=== PATIENT | female | born 1945 | race Caucasian/White ===

== ENCOUNTER 2017-03-14 11:56 | Inpatient (IN) | payer MEDICARE ==
[~2017-03-14] VITALS: Ht 167.6 cm; Wt 101.4 kg
[2017-03-14 12:58] LABS: BASOPHILS 0.1 % (0-2); EOSINOPHILS 5.2 % (0-7); HEMATOCRIT 42.5 % (36.0-48.0); IMMATURE GRANULOCYTES 0.3 % (0-5); LYMPHOCYTES 27.2 % (15-50); MCH 30.9 pg (26.0-34.0); MCHC 32.9 g/dL (31.0-37.0); MCV 93.8 fL (80.0-100.0); MEAN PLATELET VOLUME 9.8 fL (7.4-10.4); MONOCYTES 4.8 % (2-11); NEUTROPHILS 62.4 % (40-80); PLATELET COUNT 157 10x3/uL (130-400); RBC 4.53 10x6/uL (4.00-5.40); WBC 7.9 10x3/uL (4.8-10.8)
[2017-03-14 13:13] LABS: APTT 26.6 SECONDS (22.8-39.4); INR 1.06 (0.85-1.17); PROTIME 13.4 SECONDS (11.6-15.0)
[2017-03-14 13:22] LABS: ALBUMIN 3.4 g/dL (3.4-5.0); ALKALINE PHOSPHATASE 98 U/L (46-116); ALT (SGPT) 22 U/L (10-68); CALC OSMOLALITY 293 mosm/kg (275-300); CALCIUM 9.7 mg/dL (8.5-10.1); CARBON DIOXIDE 27.4 mmol/L (21.0-32.0); CHLORIDE - SERUM 101 mmol/L (98-107); CREATININE - SERUM 1.1 mg/dL (0.6-1.3); GLUCOSE 319 mg/dL (74-106); POTASSIUM - SERUM 3.8 mmol/L (3.5-5.1); PROTEIN - SERUM 7.5 g/dL (6.4-8.2); SODIUM 139 mmol/L (136-145); UREA NITROGEN 25 mg/dL (7-18); eGFR NON AFRICAN AMERICAN 51 mL/min (90-120)
[2017-03-14 13:31] LABS: CREATINE KINASE 68 UL (21-215); PRO BNP 74 pg/mL (0-125); TROPONIN-I < 0.017 ng/mL (0.000-0.060)
[2017-03-14 14:00] LABS: APPEARANCE HAZY (CLEAR); BACTERIA MODERATE /hpf (NONE SEEN); BILIRUBIN NEGATIVE (NEGATIVE); COLOR YELLOW (YELLOW); GLUCOSE 1000 mg/dL (NEGATIVE); KETONE NEGATIVE (NEGATIVE); MUCUS >1+ /lpf (NONE SEEN); NITRITE NEGATIVE (NEGATIVE); PROTEIN NEGATIVE (NEGATIVE); RED CELLS - URINE OCC /hpf (0-5); UROBILINOGEN NORMAL (NORMAL); YEAST <1+ /hpf (NONE SEEN)
--- NOTE | 2017-03-14 15:30 | NUR ---
RECEIVED REPORT FROM ER. PATIENT IS 72 Y/O FEMALE THAT WAS BROUGHT TO THE ER BY EMS. PATIENT REPORTS SHE FELL 3 TIMES YESTERDAY AND 1 TIME TODAY, AND THAT HER VISION IS DOUBLED AT TIMES. ER REPORTS PATIENT HAS SLURRED SPEECH AND RIGHT SIDE FACE DROOPING. SHE WAS DIAGNOSED WITH UTI IN ER. SHE IS BEING ADMITTED FOR GENERAL WEAKNESS. AT 1520 HER BS WAS 319 AND 2 UNITS OF REGULAR INSULIN WAS GIVEN BY ER STAFF. SHE HAS A 20G IV IN THE LEFT AC AND WAS GIVEN A FLUID BOLUS IN THE ER. SHE TESTED NEGATIVE FOR THE FLU. HER CT WAS NEGATIVE. SHE IS ALERT AND ORIENTED AND CAN WALK TO THE RESTROOM WITH 1 PERSON ASSIST. STATES HER IS ADMITTED TO THE [facility] IN [place] FOR PNEUMONIA AT THIS TIME. ROOM IS CLEAN AND READY FOR PATIENT.
--- NOTE | 2017-03-14 15:46 | NUR ---
RECEIVED PATIENT VIA STRETCHER BY ER STAFF. PATIENT IS TALKING TO PRESCHOOL TEACHER AT BEDSIDE. WILL FINISH ADMISSION.
--- NOTE | 2017-03-14 16:30 | NUR ---
PATIENT PLACEMENT COORDINATOR CAME INTO PATIENTS ROOM TO DRAW BLOOD. PATIENT WAS REFUSING, STATING "MY VEINS ARE TINY AND HORRIBLE, IT JUST HURTS TOO BAD"... EXPLAINED TO PATIENT IT IS VERY IMPORTANT TO GET LABS TO HELP THE DOCS FIGURE OUT HOW TO TREAT HER. AFTER SEVERAL MINUTES OF TALKING TO PATIENT, SHE ALLOWED LAB DRAW. CPOC.
[2017-03-14 16:35] VITALS: BP 156/83
--- NOTE | 2017-03-14 16:53 | NUR ---
RECEIVED PHONE CALL FROM PATIENT'S SON, RAHUL GOMEZ WHO IS AN RN AND LIVES IN [facility]. RAHUL ASKED IF THERE WILL BE A DERMATOLOGIST WORKING WITH HIS MOM. ADVISED THERE WILL BE, BUT NENA IS GONE FOR THE DAY. RAHUL VOICED UNDERSTANDING AND STATES THAT'S NOT A PROBLEM. RAHUL STATES HE RECEIVED SOME "DISTURBING" PICTURES FROM HIM BROTHER, WHO IS ALSO A [place], AND HE IS "VERY CONCERNED" ABOUT HER "UNSAFE LIVING CONDITIONS". ADVISED I WOULD PASS THAT INFORMATION ALONG TO THE DERMATOLOGIST AND HE WILL BE HAPPY TO CALL HIM TOMORROW. RAHUL CAN BE REACHED AT [phone].
[2017-03-14 16:54] VITALS: BP 156/83; BMI 34.7
--- NOTE | 2017-03-14 17:01 | NUR ---
ARRIVED FROM ER VIA STRETCHER. AWAKE AND ORIENTED X3. KIANA HOT PLATE PLYWOOD PRESS LABORER VERY GOOD AND STRONG. FEET PUSHING AGAINST HANDS VERY STRONG. SPEECH IS CLEAR. SEE ASSESSMENT FOR FURTHER EVAL.
--- NOTE | 2017-03-14 17:13 | NUR ---
FSBS 175, WILL GIVE 2 UNITS OF HUMALOG. CPOC
[2017-03-14 17:29] LABS: CKMB 0.7 U/L (0.0-3.6); CREATINE KINASE 58 UL (21-215)
[2017-03-14 17:34] LABS: TROPONIN-I < 0.017 ng/mL (0.000-0.060)
--- NOTE | 2017-03-14 19:22 | NUR ---
EVENING ROUNDS MADE. PATIENT LAYING IN BED. TV WON'T TURN ON, ENTERED REPAIR REQUEST. DENIES ANY OTHER NEEDS. CALL LIGHT IN REACH, SR UP X2, BED IN LOWEST POSITION. CPOC.
[2017-03-14 22:39] VITALS: BP 156/93
[2017-03-14] MEDS ORDERED: GABAPENTIN100 MG PO (22:44)
[2017-03-14] MEDS ORDERED: BAYER CHEWABLE81 MG PO (22:45)
[2017-03-14] MEDS ORDERED: K-DUR20 MEQ PO (22:45)
[2017-03-14] MEDS ORDERED: FUROSEMIDE20 MG PO (22:45)
[2017-03-14] MEDS ORDERED: PHENERGAN25 M1 PO (22:46)
[2017-03-14] MEDS ORDERED: COZAAR100 MG PO (22:47)
[2017-03-14] MEDS ORDERED: LOPRESSOR25 MG PO (22:47)
[2017-03-14] MEDS ORDERED: GLIMEPIRIDE1 MG PO (22:48)
[2017-03-14] MEDS ORDERED: ELAVIL25 MG PO (22:49)
[2017-03-14] MEDS ORDERED: CYCLOBENZAPRINE10 MG PO (22:49)
[2017-03-14] MEDS ORDERED: NOVOLOG100 U/M1 SC (22:50)
[2017-03-14 23:33] LABS: CKMB 0.7 U/L (0.0-3.6); CREATINE KINASE 65 UL (21-215)
[2017-03-14 23:34] LABS: TROPONIN-I < 0.017 ng/mL (0.000-0.060)
[2017-03-15 05:17] LABS: BASOPHILS 0.2 % (0-2); EOSINOPHILS 7.3 % (0-7); HEMATOCRIT 38.4 % (36.0-48.0); HEMOGLOBIN 12.7 g/dL (12-16); IMMATURE GRANULOCYTES 0.2 % (0-5); LYMPHOCYTES 46.7 % (15-50); MCH 30.8 pg (26.0-34.0); MCHC 33.1 g/dL (31.0-37.0); MONOCYTES 5.4 % (2-11); NEUTROPHILS 40.2 % (40-80); PLATELET COUNT 162 10x3/uL (130-400); RBC 4.13 10x6/uL (4.00-5.40); RDW 13.1 % (11.5-14.5); WBC 6.3 10x3/uL (4.8-10.8)
[2017-03-15 05:54] LABS: ALBUMIN 2.8 g/dL (3.4-5.0); ALKALINE PHOSPHATASE 81 U/L (46-116); ALT (SGPT) 18 U/L (10-68); CALC OSMOLALITY 286 mosm/kg (275-300); CARBON DIOXIDE 24.6 mmol/L (21.0-32.0); CHLORIDE - SERUM 106 mmol/L (98-107); CKMB 0.7 U/L (0.0-3.6); CREATINE KINASE 61 UL (21-215); CREATININE - SERUM 0.9 mg/dL (0.6-1.3); POTASSIUM - SERUM 3.3 mmol/L (3.5-5.1); PROTEIN - SERUM 6.4 g/dL (6.4-8.2); SODIUM 141 mmol/L (136-145); TROPONIN-I < 0.017 ng/mL (0.000-0.060); UREA NITROGEN 19 mg/dL (7-18); eGFR NON AFRICAN AMERICAN 65 mL/min (90-120)
[2017-03-15 05:59] LABS: GLUCOSE 174 mg/dL (74-106)
--- NOTE | 2017-03-15 05:59 | NUR ---
PATIENT TOOK A SHOWER AND WHEN HE CAME OUT THE RIGHT WRIST AND RIGHT AC IV'S HAD GONE BAD. NEW IV START IN LEFT WRIST, 2 ATTEMPTS. NEW IV START IN LEFT UPPER ARM ONE ATTEMPT. FLUIDS GOING ORDERED. BED LOW, CALL LIGHT IN REACH.
[2017-03-15 06:16] VITALS: BP 190/105
[2017-03-15 07:54] VITALS: BP 190/90
--- NOTE | 2017-03-15 10:28 | NUR ---
SCD'S APPLIED TO BILATERAL LE
[2017-03-15 10:57] VITALS: Ht 167.6 cm; Wt 101.4 kg
[2017-03-15 12:15] VITALS: BP 170/82
--- NOTE | 2017-03-15 14:38 | NUR ---
Rehab Prescreening Consult recieved and the chart has been reviewed. She has orders for a Speech eval and orthostatic B/P's that have not been done. Rehab will follow to see if she has a qualifying rehab diagnosis after her workup and eval's are completed. Aniya Hannah RN Clinical Liaison, rehab
[2017-03-15 15:30] VITALS: BP 153/68
--- NOTE | 2017-03-15 16:56 | NUR ---
Patient Name: TISH GUNN Admission Status: ER Accout number: [id number] Admission Date: 03-14-2017 : 1945 Admission Diagnosis: Attending: KARSON JERONIMO Current LOS: 1 Anticipated DC Date: 03-16-2017 Planned Disposition: Inpatient Rehab Primary Insurance: MEDICARE A & B PLANNED EXTERNAL PROVIDER: [facility] INPATIENT REHAB Discharge Planning Comments: * Is the patient Alert and Oriented? Yes 0 * How many steps to enter\exit or inside your home? 1 0 * PCP DR. JERONIMO 0 * Pharmacy [facility] 0 * Preadmission Environment Home with Family 0 * ADLs Independent 0 * Equipment Cane Rolling Walker Walker 0 * Other Equipment NO MEDICAL EQUIPMENT PROVIDER PREFERENCE 0 * List name and contact numbers for known caregivers / representatives who currently or will assist patient after discharge: SHARIF GUNN, SPOUSE, 0 * Community resources currently utilized None 0 * Please name any agencies selected above. NONE 0 * Additional services required to return to the preadmission environment? Yes * Can the patient safely return to the preadmission environment? Yes 0 * Has this patient been hospitalized within the prior 30 days at any hospital? No 0 CM RECEIVED MESSAGE TO CALL PT'S SON, RAHUL GOMEZ, , IN REGARDINS TO PT'S LIVING CONDITIONS THAT HE CONSIDERS UNSAFE; CM CALLED THE NUMBER AND LEFT CM DIRECT CONTACT NUMBER FOR RETURN CALL. CM RECEIVED ORDER FOR INPATIENT REHAB PRESCREENING; CM MET WITH PT IN ROOM TO DISCUSS DISCHARGE PLANNING AND NEEDS. PT REPORTS LIVING AT HOME INDEPENDENTLY WITH HER SPOUSE. PT HAS CANE, ROLLING WALKER AND STANDARD WALKER. PT HAS NOT BEEN USING ASSISTIVE DEVICES AT HOME AND REPORTS HAVING FELL THREE TIMES SINCE TUESDAY, THE LAST TIME, SHE HAD TO CALL HER FAMILY TO COME OVER AND HELP HER OUT OF THE FLOOR. PT DENIES ANY ABUSE OR NEGLECT AT HOME; PT DENIES THAT HER LIVING ENVIRONMENT IS UNSAFE; PT REPORTS SHE HAS NO GUARDIAN AND MAKES DECISIONS FOR HERSELF. PT HAS NO OUTSIDE SERVICES ASSISTING IN THE HOME. CM DISCUSSED AVAILABILITY OF HOME HEALTH, REHAB SERVICES AND MEDICAL EQUIPMENT. PT HAS HAD HOME HEALTH WITH [facility] IN THE PAST AND THEY DID A GOOD JOB, BUT IT IS NOT CURRENT. PT WOULD LIKE TO BE CONSIDERED FOR REHAB AT [place] AND WOULD RATHER NOT GO [place]OWN OR OUT OF TOWN FOR REHAB. PT REPORTS PLAN TO COMPLETE REHAB AND RETURN HOME. PT'S SPOUSE IS IN [facility] WITH PNEUMONIA. PT REPORTS HER SON WILL PICK HER UP FOR DISCHARGE HOME. CM WAITING INPATIENT REHAB PRESCREENING RESULTS AND ADMISSION DETERMINATION FROM [facility] INPATIENT RE[facility]AB. Vp Security: Andreas Daley
--- NOTE | 2017-03-15 17:31 | NUR ---
UP IN ROOM WITH PT. PT IS WEAK ON L SIDE. WILL CONTINUE TO MONITOR.
[2017-03-15 21:12] VITALS: BP 186/82
[2017-03-16] VITALS (7 sets, daily range): BP systolic 154–187; BP diastolic 84–104
--- NOTE | 2017-03-16 00:13 | NUR ---
2100 REPORT RECIEVED FROM RUTHIE HEIN, SHIFT ASSESSMENT COMPLETE, PLEASE SEE FLOW SHEETS FOR DETAILS. PT C/O BP ELEVATION, WILL REVIEW CHART AND DETERMINE IF A CALL TO MD NECESSARY. 2300 WAS ABLE TO DETERMINE THAT PT BP MEDS NOT STARTED ON PURPOSE PT EXPERIENCING ORTHOSTATIC HYPOTENSION. INFORMED HER OF THIS AND EXPLAINED IN DETAIL. WILL CPOC.
--- NOTE | 2017-03-16 04:34 | NUR ---
SLEEPING, NO S&S ACUTE DISTRESS NOTED. BED LOW AND LOCKED, CALL LIGHT IN REACH. WILL CPOC.
[2017-03-16 05:46] LABS: BASOPHILS 0.2 % (0-2); EOSINOPHILS 6.7 % (0-7); HEMATOCRIT 38.6 % (36.0-48.0); HEMOGLOBIN 12.6 g/dL (12-16); IMMATURE GRANULOCYTES 0.5 % (0-5); LYMPHOCYTES 48.8 % (15-50); MCH 30.2 pg (26.0-34.0); MCHC 32.6 g/dL (31.0-37.0); MCV 92.6 fL (80.0-100.0); MEAN PLATELET VOLUME 9.9 fL (7.4-10.4); MONOCYTES 4.7 % (2-11); NEUTROPHILS 39.1 % (40-80); PLATELET COUNT 154 10x3/uL (130-400); RBC 4.17 10x6/uL (4.00-5.40); RDW 12.9 % (11.5-14.5)
[2017-03-16 06:09] LABS: ALBUMIN 2.5 g/dL (3.4-5.0); ANION GAP 9.9 mmol/L (8-16); BILIRUBIN - TOTAL 0.7 mg/dL (0.2-1.3); CALCIUM 8.8 mg/dL (8.5-10.1); CARBON DIOXIDE 25.5 mmol/L (21.0-32.0); CREATININE - SERUM 0.9 mg/dL (0.6-1.3); POTASSIUM - SERUM 3.4 mmol/L (3.5-5.1)
--- NOTE | 2017-03-16 17:13 | NUR ---
PT SITTING IN BED EATING. STATES NO COMPLAINTS OR CONCERNS AT THIS TIME. CALL LIGHT WITH IN REACH. CONT TO OLINDA
[2017-03-17 00:13] VITALS: BP 151/68
--- NOTE | 2017-03-17 02:57 | NUR ---
PATIENT PULLED IV OUT OF HER LEFT AC GETTING UP TO THE BATHROOM. SHE STATES, "I WILL NOT GET A NEW IV TONIGHT. I WANT THE SAME NURSE WHO GAVE ME THE LAST IV TO GIVE ME MY NEXT ONE." PATIENT IS ENCOURAGED TO ACCEPT NEW IV, HOWEVER SHE IS REFUSING.
[2017-03-17 06:31] LABS: ANION GAP 11.8 mmol/L (8-16); BASOPHILS 0.2 % (0-2); BILIRUBIN - TOTAL 0.6 mg/dL (0.2-1.3); CARBON DIOXIDE 25.5 mmol/L (21.0-32.0); CREATININE - SERUM 0.9 mg/dL (0.6-1.3); EOSINOPHILS 7.4 % (0-7); HEMATOCRIT 38.9 % (36.0-48.0); HEMOGLOBIN 12.8 g/dL (12-16); IMMATURE GRANULOCYTES 0.4 % (0-5); LYMPHOCYTES 48.6 % (15-50); MCH 30.3 pg (26.0-34.0); MCHC 32.9 g/dL (31.0-37.0); MONOCYTES 5.5 % (2-11); NEUTROPHILS 37.9 % (40-80); PLATELET COUNT 179 10x3/uL (130-400); POTASSIUM - SERUM 3.3 mmol/L (3.5-5.1); PROTEIN - SERUM 6.6 g/dL (6.4-8.2); RBC 4.23 10x6/uL (4.00-5.40); RDW 12.9 % (11.5-14.5); WBC 5.3 10x3/uL (4.8-10.8)
[2017-03-17 08:14] VITALS: BP 119/74
[2017-03-17 12:09] VITALS: BP 181/88
--- NOTE | 2017-03-17 13:22 | NUR ---
Nutrition follow-up: Diet: ADA consistent CHO PO intake ~100% of meals Labs reviewed; Glucose running > 200 mg/dl Wt: 223# +BM RDN will provide pt with printed diet information. RDN following.
[2017-03-17] MEDS ORDERED: ESGIC TABLET1 TAB PO (13:46)
--- NOTE | 2017-03-17 15:24 | NUR ---
PT LYING IN BED WOULD LIKE TO SLEEP. CALL LIGHT WITH IN REACH. WILL CONT TO OLINDA.
[2017-03-17 16:05] VITALS: BP 154/73
--- NOTE | 2017-03-17 17:11 | NUR ---
GAVE REPORT TO REHAB. PT SIGNED PAPERS. WILL TAKE PT VIA WHEELCHAIR TO REHAD ROOM 1114 B
--- NOTE | 2017-03-24 16:21 | EC ---
PATIENT:TISH GUNN DATE OF SERVICE: 03/14/17 SEX: F MEDICAL RECORD: [id number] DATE OF : 41 LOCATION:D.M2 D.210 AGE OF PATIENT: 72 ADMISSION DATE: 03/14/17 REFERRING PHYSICIAN: INTERPRETING PHYSICIAN: MCKENZIE BROOKS MD ECHOCARDIOGRAM REPORT ECHO CHARGES 4 ECHO COMPLETE CLINICAL DIAGNOSIS: TIA/WEAKNESS HX OF CAD/CABGX8 ECHOCARDIOGRAPHIC MEASUREMENTS (adult normal given) AC root (d.<3.7cm) 3.7 cm LV Septum d (<1.2 cm> 1.7 cm Valve Excursion 1.9 cm LV Septum (systole) 1.9 cm Left Atria (s.<4.0cm> 3.5 cm LVPW d(<1.2cm) 1.9 cm RV (d.<2.3cm) 3.4 cm LVPW (sytole) 2.0 cm LV diastole(<5.6CM) 4.9 cm MV E-F(>70mm/sec) cm LV systole 3.5 cm LVOT Diameter 2.0 cm MV exc.(>10mm) cm Est.ejection fraction (50-75%) % Pericardial Effusion N DOPPLER: LVIT cm/sec A 106 cm/sec E 54 cm/sec LA cm/sec RVSP 20 mmHg LVOT 102 cm/sec AOP1/2T m/s Asc. Ao 111 cm/sec RVOT cm/sec RA cm/sec PA cm/sec AV Gradient Peak 4.49 mmHg AV Mean 2.37 mmHg AV Area 3.1 cm MV Gradient Peak 6.99 mmHg MV Mean 3.09 mmHg MV Area cm COMMENTS: Commercial Representative: [employer]UEÑ[employer] Executive Producer Promos: 2 Dr. Rodriguez TAPE# PACS DATE OF SERVICE: 03/15/2017 FINDINGS: 1. Left ventricular chamber size is within normal limits. Left ventricular systolic function is normal. Overall ejection fraction estimated at 55%. 2. Left atrium, right atrium, and right ventricle chamber sizes are within normal limits. 3. Valvular structures have normal structure and motion. 4. Doppler interrogation only reveals trace to mild tricuspid regurgitation, no other valvular insufficiency or stenosis and pulmonary systolic pressure is ECHOCARDIOGRAM REPORT [id number] TISH GUNN normal estimated at 20 mmHg. 5. No evidence of pericardial effusion or left ventricular thrombus. TRANSINT:[id number] Voice Confirmation ID: [id number] DOCUMENT ID: [id number] 03/24/2017 Edited to correct date of service, [email or web address]. MCKENZIE BROOKS MD at 1621 CC: [id number] DICTATION DATE: 03/16/17 1043 RADIO INTELLIGENCE OPERATOR: 03/16/17 1153 DIS IN 03/17/17 [place] [id number] [place] [id number]
== END 2017-03-17 18:07 | DRG 312 ==
LOC: D.ER 11:56 → D.M2 14:57
PROVIDERS: Emergency Medicine; Family Medicine; Nurse Practitioner Family; ADMIT Emergency Medicine
DX: I95.1 Orthostatic hypotension (principal); R51 Headache; I25.10 Atherosclerotic heart disease of native coronary artery without angina pectoris; E11.65 Type 2 diabetes mellitus with hyperglycemia; W19.XXXA Unspecified fall, initial encounter; I10 Essential (primary) hypertension; R32 Unspecified urinary incontinence; Z79.4 Long term (current) use of insulin; Z95.1 Presence of aortocoronary bypass graft; I25.2 Old myocardial infarction

== ENCOUNTER 2017-03-17 17:12 | Inpatient (IN) | payer MEDICARE ==
[~2017-03-17] VITALS: Ht 167.6 cm; Wt 98.9 kg
--- NOTE | ~2017-03-17 | DS ---
PATIENT:TISH GUNN :41 MEDICAL RECORD: [id number] DISCHARGE SUMMARY ADMISSION DATE: 03/17/17 DISCHARGE DATE: 03/30/17 This is a discharge dated 03/30/2017 from inpatient rehab. PRIMARY DIAGNOSIS: Decreased functional ability and ability to provide activities of daily living secondary to debility with stroke-like symptoms. SECONDARY DIAGNOSES: 1. Migraines. 2. Frequent falls. 3. Diabetes. 4. Hypertension. 5. Hypokalemia. 6. Coronary artery disease. 7. Status post [place]. 8. Anemia. HOSPITAL COURSE: Full H&P is located elsewhere on the chart on this 72-year-old female who was admitted to inpatient rehab for physical therapy and occupational therapy to improve gait, transfer skills, bed mobility, and activities of daily living to a modified independent level. She was evaluated by PT and OT and their plans of care were followed. She was seen by speech therapy for evaluation as well. Fingerstick blood sugars were monitored throughout her hospital stay with appropriate adjustment in medications as needed. She required senior care care for observation and assessment and medication administration. Electrolytes were managed by protocol. She was continued on appropriate home medications. She was cooperative with therapies, progressing towards goals. Case management was involved for discharge planning. She was considered stable for discharge on 03/30/2017. DISCHARGE MEDICATIONS: As per discharge medication reconciliation. DISCHARGE DISPOSITION: The patient is discharged home. She will continue her current diet and level of activity and will have home health for continued PT, OT and senior care care. She will follow up with primary care and specialists as directed. At least 30 minutes was spent in this discharge activity. TRANSINT:[id number] Voice Confirmation ID: [id number] DOCUMENT ID: [id number] Dictated By: CHARISMA MATAMOROS I have interviewed/examined the above patient and agree with these documented findings. DISCHARGE SUMMARY REPORT [id number] TISH GUNN SCOTT MD at 1802 at 1437 CC: [id number] DICTATION DATE: 05/01/17 1551 WARP PICKER: 05/02/17 0211 DIS IN 03/30/17 [address] [id number] [place] [address]
--- NOTE | ~2017-03-17 | RHP ---
PATIENT: TISH GUNN MEDICAL RECORD: [id number] ACCOUNT: [id number] LOCATION:[facility] : 43 ADMISSION DATE: 03/17/17 REHABILITATION HISTORY AND PHYSICAL EXAMINATION POST ADMISSION PHYSICIAN EXAMINATION POST-ADMISSION PHYSICAL EXAMINATION AND HISTORY AND PHYSICAL DATE OF ADMISSION: 03/17/2017 ADMITTING DIAGNOSIS: Debility. HISTORY OF PRESENT ILLNESS: The patient is admitted to the inpatient rehab for debility. She is a 72-year-old female patient with past medical history of hypertension, coronary artery disease status post coronary artery bypass grafting and SD at the [facility] in May this year, diabetes, migraine, and falls. She had no precipitating events prior to her fall. She reports that she was feeling weak and cannot stand up. Stated that her left side of her face felt funny. Her headache had been worse than usual since Tuesday. She had been having some visual disturbance. She was admitted with generalized weakness and falls. Her EKG showed nonspecific ST-T wave changes. Her blood sugar has been elevated requiring a sliding scale insulin. She was found to have a positive urinalysis in the ED with slurred speech and right-sided facial drooping per ED nurse. She has noted right-sided weakness with sitting or standing. She leans to her right and is noted to have high risk for falls. She lives at home alone during the week and her is there on weekends, but he has been in the hospital and will not be home upon her return. She was independent with her mobility and ADLs till Tuesday on 03/11 when she stated to have these episodes and fall and was unable to get up by herself. States that she basically has been in bed since being admitted to the hospital. States that she gets lightheaded at times when getting up and feeling weak. She is set up to mod assist for ADLs and max assist to total assist for mobility and only being able to ambulate 4 feet. At this time, she would like to return home at her prior level of functioning or better. Comorbidities in this patient include falls, hypoxia, dyspnea, shortness of breath, edema, impaired skin integrity, aspiration, infection, fatigue, malaise, bleeding, anemia, cardiac arrhythmias, AMS, pain, respiratory distress, known coronary artery disease, urinary incontinence, history of coronary artery bypass grafting, and syncope. PAST MEDICAL HISTORY: Significant for coronary artery disease, hypertension, diabetes, weakness, and SD. PAST SURGICAL HISTORY: Includes coronary artery bypass grafting times 8 in May of 2016, a bladder sling in 2007, and angioplasty with stents in the past. ALLERGIES: PENICILLIN. CURRENT MEDICATIONS: Include [place] 5/325 as needed for pain, Amaryl 0.5 mg with dinner. She is on potassium 20 mEq daily, Cozaar 50 mg daily, furosemide 20 mg daily, aspirin chewable 81 mg daily. She is on a glucose replacement protocol for low blood sugar. She is on a low-resistant sliding scale for high blood sugar with Humalog. She is on promethazine 25 mg every 6 hours p.r.n., Lopressor 12.5 mg b.i.d., Neurontin 100 mg at bedtime, Fioricet for headaches, amitriptyline 25 mg at bedtime, and polyethylene glycol 17 grams in 8 ounces of water daily. HISTORY AND PHYSICAL [id number] TISH GUNN HABITS: No current alcohol or tobacco use. FAMILY HISTORY: Noncontributory. SOCIAL HISTORY: The patient hopes to return back home. REVIEW OF SYSTEMS: GENERAL: Denies weakness or fatigue at this time, but does complain of weakness when getting up. HEENT: Denies cold, cough, or congestion. CARDIOVASCULAR: Denies chest pain. LUNGS: Without shortness of breath. PHYSICAL EXAMINATION: VITAL SIGNS: Stable, afebrile. GENERAL: An obese female, in no acute distress upon exam. HEENT: Normocephalic and atraumatic. Mucosa moist. NECK: Supple. No lymphadenopathy. LUNGS: Clear at this time. HEART: Regular rate and rhythm. ABDOMEN: Benign. EXTREMITIES: No clubbing, cyanosis, or edema. NEUROLOGIC: She seems intact. LABORATORY DATA: White count of 6.1, H&H of 12 and 38, and platelet count was 155. Sodium 140, potassium 3.7, BUN and creatinine of 13 and 1.0, and blood sugar is noted to be 209. ASSESSMENT: This is a 72-year-old female patient admitted to rehab with a working diagnosis of debility. The patient has potential to make improvement. We will institute the following multidisciplinary therapies to include, but not limited to physical, occupational, respiratory, speech, nutritional services, prosthetics and orthotics. Given her complex condition and risk for more complications, rehabilitation services cannot be provided at a low level of care such as a [facility] facility. PLAN: 1. Admit to [facility] rehab for intensive inpatient therapy to include the following disciplines: A. Physical therapy to improve gait, all transfer skills and bed mobility to a modified independent level. B. Occupational therapy to improve activities of daily living to a modified independent level. C. Case management to assist with discharge planning and placement options. D. Nutrition to assist with nutritional needs. E. Rehabilitation nursing to assist in monitoring the patient's underlying medical conditions and to assist with any type of bowel or bladder management. 2. The patient's current medication and medical care will be continued. 3. The patient will be placed on standard fall precautions. 4. The patient's estimated length of stay is approximately 7 to 10 days. 5. Discuss this patient during care team staff meeting this week. TRANSINT:[id number] Voice Confirmation ID: [id number] DOCUMENT ID: [id number] HISTORY AND PHYSICAL [id number] TISH GUNN notes whether there has been none or any medical/functional change since admission: - No change since preadmission screen. KATHLEEN attests patient continues to be appropriate for IRF: - Continues to be appropriate. KEILA KING MD at 1838 CC: [id number] DICTATION DATE: 03/18/17830 ROLL OFF DRIVER: 03/18/17 [address] [facility] [address] [place] [address]
[~2017-03-17 17:12] MED LIST: BAYER CHEWABLE81 MG PO; COZAAR100 MG PO; CYCLOBENZAPRINE10 MG PO; ELAVIL25 MG PO; ESGIC TABLET1 TAB PO; FUROSEMIDE20 MG PO; GABAPENTIN100 MG PO; GLIMEPIRIDE1 MG PO; K-DUR20 MEQ PO; LOPRESSOR25 MG PO; NOVOLOG100 U/M1 SC; PHENERGAN25 M1 PO
[2017-03-17 19:54] VITALS: BP 177/86; BMI 35.3
[2017-03-18 07:24] LABS: BASOPHILS 0.2 % (0-2); EOSINOPHILS 5.8 % (0-7); HEMATOCRIT 38.4 % (36.0-48.0); HEMOGLOBIN 12.7 g/dL (12-16); IMMATURE GRANULOCYTES 0.2 % (0-5); LYMPHOCYTES 38.7 % (15-50); MCH 30.6 pg (26.0-34.0); MCHC 33.1 g/dL (31.0-37.0); MCV 92.5 fL (80.0-100.0); MEAN PLATELET VOLUME 9.4 fL (7.4-10.4); MONOCYTES 6.3 % (2-11); NEUTROPHILS 48.8 % (40-80); PLATELET COUNT 155 10x3/uL (130-400); RBC 4.15 10x6/uL (4.00-5.40); RDW 13.2 % (11.5-14.5); WBC 6.1 10x3/uL (4.8-10.8)
[2017-03-18 07:52] LABS: ANION GAP 12.3 mmol/L (8-16); CALCIUM 9.1 mg/dL (8.5-10.1); CARBON DIOXIDE 26.4 mmol/L (21.0-32.0); POTASSIUM - SERUM 3.7 mmol/L (3.5-5.1)
[2017-03-18 08:37] VITALS: BP 194/97
[2017-03-18 13:38] VITALS: Ht 167.6 cm; Wt 98.9 kg
[2017-03-18 20:50] VITALS: BP 155/84
[2017-03-19 08:33] VITALS: BP 154/67
[2017-03-19 23:10] VITALS: BP 148/78
[2017-03-20 08:42] VITALS: BP 137/59
[2017-03-20 20:00] VITALS: BP 152/74
[2017-03-21 07:31] LABS: BASOPHILS 0.2 % (0-2); EOSINOPHILS 4.5 % (0-7); HEMATOCRIT 38.1 % (36.0-48.0); HEMOGLOBIN 12.7 g/dL (12-16); IMMATURE GRANULOCYTES 0.3 % (0-5); LYMPHOCYTES 45.2 % (15-50); MCH 30.8 pg (26.0-34.0); MCHC 33.3 g/dL (31.0-37.0); MCV 92.5 fL (80.0-100.0); MEAN PLATELET VOLUME 9.9 fL (7.4-10.4); NEUTROPHILS 44.8 % (40-80); PLATELET COUNT 176 10x3/uL (130-400); RBC 4.12 10x6/uL (4.00-5.40); RDW 13.4 % (11.5-14.5)
[2017-03-21 07:38] LABS: ANION GAP 11.5 mmol/L (8-16); CALCIUM 9.2 mg/dL (8.5-10.1); CARBON DIOXIDE 27.4 mmol/L (21.0-32.0); CREATININE - SERUM 0.9 mg/dL (0.6-1.3); POTASSIUM - SERUM 3.9 mmol/L (3.5-5.1)
[2017-03-21 09:54] VITALS: BP 160/92
[2017-03-21 21:42] VITALS: BP 155/73
[2017-03-22 10:30] VITALS: BP 118/61
[2017-03-22 19:30] VITALS: BP 149/72
[2017-03-23 07:19] LABS: BASOPHILS 0.2 % (0-2); EOSINOPHILS 4.1 % (0-7); HEMATOCRIT 39.3 % (36.0-48.0); HEMOGLOBIN 12.9 g/dL (12-16); IMMATURE GRANULOCYTES 0.5 % (0-5); LYMPHOCYTES 46.5 % (15-50); MCH 30.9 pg (26.0-34.0); MCHC 32.8 g/dL (31.0-37.0); MCV 94.2 fL (80.0-100.0); MEAN PLATELET VOLUME 10.1 fL (7.4-10.4); MONOCYTES 5.1 % (2-11); NEUTROPHILS 43.6 % (40-80); PLATELET COUNT 160 10x3/uL (130-400); RBC 4.17 10x6/uL (4.00-5.40); RDW 13.6 % (11.5-14.5); WBC 5.7 10x3/uL (4.8-10.8)
[2017-03-23 07:33] LABS: ANION GAP 11.9 mmol/L (8-16); CALCIUM 8.9 mg/dL (8.5-10.1); CARBON DIOXIDE 27.1 mmol/L (21.0-32.0)
[2017-03-23 07:36] LABS: HEMOGLOBIN A1C 7.6 % (4.8-6.0)
[2017-03-23 09:01] VITALS: BP 153/72
[2017-03-23 19:00] VITALS: BP 175/80
[2017-03-24 08:48] VITALS: BP 155/84
[2017-03-24 19:21] VITALS: BP 168/68
[2017-03-25 18:50] VITALS: BP 130/80
[2017-03-25 19:30] VITALS: BP 137/64
[2017-03-26 08:28] VITALS: BP 145/79
[2017-03-26 19:45] VITALS: BP 172/86
[2017-03-27 08:05] VITALS: BP 183/75
[2017-03-27 19:45] VITALS: BP 180/89
[2017-03-28 07:07] LABS: BASOPHILS 0.2 % (0-2); EOSINOPHILS 4.6 % (0-7); HEMATOCRIT 40.3 % (36.0-48.0); HEMOGLOBIN 13.3 g/dL (12-16); IMMATURE GRANULOCYTES 0.2 % (0-5); LYMPHOCYTES 43.5 % (15-50); MCH 30.9 pg (26.0-34.0); MCV 93.5 fL (80.0-100.0); MEAN PLATELET VOLUME 9.7 fL (7.4-10.4); NEUTROPHILS 45.5 % (40-80); PLATELET COUNT 160 10x3/uL (130-400); RBC 4.31 10x6/uL (4.00-5.40); RDW 13.4 % (11.5-14.5); WBC 4.8 10x3/uL (4.8-10.8)
[2017-03-28 07:20] LABS: ANION GAP 12.6 mmol/L (8-16); CALCIUM 9.2 mg/dL (8.5-10.1); CARBON DIOXIDE 26.7 mmol/L (21.0-32.0); CREATININE - SERUM 0.9 mg/dL (0.6-1.3); POTASSIUM - SERUM 4.3 mmol/L (3.5-5.1)
[2017-03-28 08:00] VITALS: BP 152/89
[2017-03-28 19:35] VITALS: BP 129/68
[2017-03-29 08:37] VITALS: BP 147/66
[2017-03-29 21:15] VITALS: BP 137/68
[2017-03-30 07:54] VITALS: BP 164/73
== END 2017-03-30 13:50 | disposition home health service (06) | DRG 948 ==
LOC: D.REHAB 17:12
PROVIDERS: Emergency Medicine
DX: R53.81 Other malaise (principal); R09.02 Hypoxemia; R06.02 Shortness of breath; E11.65 Type 2 diabetes mellitus with hyperglycemia; R60.0 Localized edema; R55 Syncope and collapse; B99.9 Unspecified infectious disease; R53.83 Other fatigue; D64.9 Anemia, unspecified; R41.82 Altered mental status, unspecified; I25.10 Atherosclerotic heart disease of native coronary artery without angina pectoris; R32 Unspecified urinary incontinence; Z95.1 Presence of aortocoronary bypass graft; L98.8 Other specified disorders of the skin and subcutaneous tissue

== ENCOUNTER 2017-07-17 12:17 | Emergency (ER) | payer MEDICARE ==
[2017-03-18 13:38] VITALS: BMI 35.2
[2017-07-17 12:44] LABS: BASOPHILS 0.1 % (0-2); EOSINOPHILS 0.9 % (0-7); HEMATOCRIT 44.2 % (36.0-48.0); HEMOGLOBIN 14.8 g/dL (12-16); IMMATURE GRANULOCYTES 0.2 % (0-5); LYMPHOCYTES 35.1 % (15-50); MCH 31.4 pg (26.0-34.0); MCHC 33.5 g/dL (31.0-37.0); MCV 93.8 fL (80.0-100.0); MEAN PLATELET VOLUME 10.1 fL (7.4-10.4); MONOCYTES 6.3 % (2-11); NEUTROPHILS 57.4 % (40-80); PLATELET COUNT 161 10x3/uL (130-400); RBC 4.71 10x6/uL (4.00-5.40); WBC 8.5 10x3/uL (4.8-10.8)
[2017-07-17 12:52] LABS: INR 1.03 (0.85-1.17); PROTIME 13.1 SECONDS (11.6-15.0)
[2017-07-17 12:53] LABS: APTT 29.3 SECONDS (22.8-39.4)
[2017-07-17 13:14] LABS: ALBUMIN 3.8 g/dL (3.4-5.0); ANION GAP 16.5 mmol/L (8-16); BILIRUBIN - TOTAL 0.53 mg/dL (0.2-1.3); CALCIUM 9.5 mg/dL (8.5-10.1); CARBON DIOXIDE 23.5 mmol/L (21.0-32.0); PROTEIN - SERUM 7.9 g/dL (6.4-8.2)
== END 2017-07-17 13:46 | disposition critical access hospital (66) ==
LOC: D.ER 12:17
PROVIDERS: Emergency Medicine
DX: I63.9 Cerebral infarction, unspecified (principal); E11.9 Type 2 diabetes mellitus without complications; Z79.4 Long term (current) use of insulin; R00.0 Tachycardia, unspecified

== ENCOUNTER → 2017-10-19 13:05 | Outpatient (CLI) | payer MEDICARE ==
[2017-03-18 13:38] VITALS: BMI 35.2
== END | disposition home or self-care (01) ==
LOC: D.RAD 13:00
DX: R13.12 Dysphagia, oropharyngeal phase (principal)

== ENCOUNTER → 2018-01-23 13:35 | Outpatient (CLI) | payer MEDICARE ==
[2017-03-18 13:38] VITALS: BMI 35.2
== END | disposition home or self-care (01) ==
LOC: D.RAD 01-05 13:00
DX: R13.12 Dysphagia, oropharyngeal phase (principal)